=== PATIENT | female | born 1965 | race Caucasian/White ===

== ENCOUNTER 2019-01-06 11:01 | Emergency (ER) | payer BC ==
[2019-01-06] MEDS ORDERED: SODIUM CHLORIDE 0.9% 1,000 ML IV ONE (11:26)
[2019-01-06] MEDS ORDERED: ONDANSETRON 4 MG/2 ML VIAL IVP STA (11:26)
[2019-01-06] MEDS ORDERED: MECLIZINE 12.5 MG TABLET PO STA (11:26)
--- NOTE | 2019-01-06 11:31 | ED Physician Documentation ---
History of Present Illness - Stated complaint Stated Complaint: DIZZINESS/NAUSEA - Chief complaint Chief Complaint: Neuro - History obtained from History obtained from: Patient, Family - History of Present Illness Timing: Today Pain level max: 0 Pain level now: 0 - Additonal information Additional information: patient states she feels the room spinning this morning. + nausea. no vomiting. No head injury. Visiting from [place]. No focal neurological deficits. No chest pain. No shortness of breath. Worse with movement and better with rest. Review of Systems Constitutional: denies: Fever, Chills Respiratory: denies: Cough GI: denies: Abdominal Pain, Vomiting, Diarrhea Skin: denies: Rash Musculoskeletal: denies: Neck pain, Back pain Neurologic: denies: Focal weakness, Numbness, Headache PD PAST MEDICAL HISTORY - Past Medical History Past Medical History: Yes Cardiovascular: High cholesterol Neuro: CVA Endocrine/Autoimmune: HyPOthyroidism Psych: ADD/ADHD Other Past Medical History: HELP syndrome. - Past Surgical History Past Surgical History: Yes Ortho: Knee replacement /[employer]: Hysterectomy, Other - Present Medications Home Medications: Ambulatory Orders Medication Instructions Recorded Confirmed Aspirin Chewable [[facility] [place] 81 mg PO DAILY 01/06/19 01/06/19 Aspirin] Atorvastatin [Lipitor] 0 mg 01/06/19 Clopidogrel [Plavix] 75 mg PO DAILY 01/06/19 01/06/19 Dextroamphetamine/Amphetamine 10 mg PO 01/06/19 [Adderall 10 mg Tablet] Levothyroxine [Synthroid] 75 mcg PO QDAC 01/06/19 01/06/19 Meclizine [Antivert] 12.5 - 25 mg PO Q6H PRN #20 tablet 01/06/19 Ondansetron Odt [Zofran] 4 mg TL Q6H PRN #10 tablet 01/06/19 Venlafaxine [Effexor] 37.5 mg PO BID 01/06/19 01/06/19 lamoTRIgine [LaMICtal] 25 mg PO DAILY 01/06/19 01/06/19 - Allergies Allergies/Adverse Reactions: Allergies Allergy/AdvReac Type Severity Reaction Status Date / Time No Known Drug Allergies Allergy Verified 01/06/19 11:16 - Social History Does the pt smoke?: No Smoking Status: Never smoker Does the pt drink ETOH?: No Does the pt have substance abuse?: No - Immunizations Immunizations are current?: Yes PD ED PE NORMAL - Vitals Vital signs reviewed: Yes - General General: Alert and oriented X 3, No acute distress, Well developed/nourished - HEENT HEENT: PERRL, Moist mucous membranes, Pharynx benign, Other (horizontal nystagmus, fast to the L.) - Neck Neck: Supple, no meningeal sign - Cardiac Cardiac: RRR, Strong equal pulses - Respiratory Respiratory: No respiratory distress, Clear bilaterally - Abdomen Abdomen: Soft, Non tender, Non distended - Back Back: No spinal TTP - Derm Derm: Warm and dry - Extremities Extremities: No edema, No calf tenderness / cord - Neuro Neuro: Alert and oriented X 3, board operator 2-12 intact, No motor deficit, No sensory deficit, Normal speech, Other (Positive Hallpike to the left. Horizontal nystagmus.) Eye Opening: Spontaneous Motor: Obeys Commands Verbal: Oriented GCS Score: 15 - Psych Psych: Normal mood, Normal affect Results - Vitals Vitals: Vital Signs - 24 hr 01/06/19 01/06/19 11:11 12:25 Temperature 36.8 C Heart Rate 63 62 Respiratory 20 14 Rate Blood Pressure 136/87 H 148/99 H O2 Saturation 98 100 Oxygen O2 Source Room air - EKG (time done) 1131 Rate: Rate (enter#) (66) Rhythm: NSR [place]: Normal Intervals: Normal NH QRS: Normal Ischemia: Normal ST segments - Labs Labs: Laboratory Tests 01/06/19 01/06/19 01/06/19 11:41 11:41 12:15 WBC 4.3 L RBC 5.28 Hgb 15.5 Hct 49.4 H MCV 93.6 MCH 29.4 MCHC 31.4 L RDW 13.1 Plt Count 268 MPV 9.1 Neut # (Auto) 3.0 Lymph # (Auto) 0.9 L Brooke # (Auto) 0.2 Eos # (Auto) 0.1 Baso # (Auto) 0.0 Absolute Nucleated RBC 0.00 Nucleated RBC % 0.0 Sodium 141 Potassium 3.8 Chloride 105 Carbon Dioxide 28 Anion Gap 8.0 BUN 18 Creatinine 0.6 Estimated GFR (MDRD) 104 Glucose 102 H Calcium 9.5 Total Bilirubin 0.9 AST 25 ALT 28 Alkaline Phosphatase 60 Total Protein 6.6 L Albumin 3.9 Globulin 2.7 Albumin/Globulin Ratio 1.4 Lipase 28 Urine Color YELLOW Urine Clarity CLEAR Urine pH 7.0 Ur Specific Luana 1.010 Urine Protein NEGATIVE Urine Glucose (UA) NEGATIVE Urine Ketones NEGATIVE Urine Occult Blood NEGATIVE Urine Nitrite NEGATIVE Urine Bilirubin NEGATIVE Urine Urobilinogen 0.2 (NORMAL) Ur Leukocyte Esterase NEGATIVE Ur Microscopic Review NOT INDICATED Urine Culture Comments NOT INDICATED - Rads (name of study) head ct Radiology: Prelim report reviewed, EMP read contemporaneously, See rad report (Old stroke. No acute abnormality) PD MEDICAL DECISION MAKING - ED course Complexity details: reviewed results, re-evaluated patient, considered differential, d/w patient, d/w family ED course: Patient with what appears to be vertigo. Likely BPPV. Possible vestibular neuritis, though less likely. No evidence of stroke. No acute laboratory abnormalities. Feels better after meclizine and Zofran. Ambulating without difficulty. Patient counseled regarding signs and symptoms for which I believe and urgent re-evaluation would be necessary. Patient with good understanding of and agreement to plan and is comfortable going home at this time This document was made in part using voice recognition software. While efforts are made to proofread this document, sound alike and grammatical errors may occur. Departure - Departure Disposition: 01 Home, Self Care Clinical Impression: Vertigo Condition: Good Instructions: ED Vertigo Unspecified Follow-Up: your,doctor in 1 week [Other] Prescriptions: Meclizine [Antivert] 12.5 - 25 mg PO Q6H PRN #20 tablet PRN Reason: Vertigo Ondansetron Odt [Zofran] 4 mg TL Q6H PRN #10 tablet PRN Reason: Nausea / Vomiting Comments: Follow-up with your doctor for further care. Return if you worsen. This should improve over the next 24 hours. You can try the half somersault maneuver at home as well. There is a YouTube video on this. Your left ear appears to be the ear that is effected. Discharge Date/Time: 01/06/19 13:04
[2019-01-06 11:53] LABS: BASOPHILS % (AUTO) 0.7 %; EOSINOPHILS # (AUTO) 0.1 10^3/uL (0.0-0.7); EOSINOPHILS % (AUTO) 2.5 %; HGB - HEMOGLOBIN 15.5 g/dL (12.0-16.0); LYMPHOCYTES # (AUTO) 0.9 10^3/uL (1.5-3.5); LYMPHOCYTES % (AUTO) 20.8 %; MEAN CORPUSCULAR HEMOGLOBIN 29.4 pg (27.0-31.0); MEAN CORPUSCULAR HGB CONC 31.4 g/dL (32.0-36.0); MEAN CORPUSCULAR VOLUME 93.6 fL (81.0-99.0); MEAN PLATELET VOLUME 9.1 fL (7.9-10.8); MONOCYTES # (AUTO) 0.2 10^3/uL (0.0-1.0); MONOCYTES % (AUTO) 5.5 %; NEUTROPHILS % (AUTO) 69.8 %; PLT - PLATELET COUNT 268 10^3/uL (130-450); RED BLOOD COUNT 5.28 10^6/uL (4.20-5.40); RED CELL DISTRIBUTION WIDTH 13.1 % (12.0-15.0); WHITE BLOOD COUNT 4.3 x10^3/uL (4.8-10.8)
[2019-01-06 12:06] LABS: ALBUMIN 3.9 g/dL (3.2-5.5); ALBUMIN/GLOBULIN RATIO 1.4 (1.0-2.2); BILIRUBIN,TOTAL 0.9 mg/dL (0.2-1.0); CALCIUM 9.5 mg/dL (8.5-10.3); CREATININE 0.6 mg/dL (0.4-1.0); TOTAL PROTEIN 6.6 g/dL (6.7-8.2)
[2019-01-06 12:25] VITALS: BP 148/99
[2019-01-06 12:34] LABS: BILIRUBIN,URINE NEGATIVE (NEGATIVE); GLUCOSE, URINE (UA) NEGATIVE (NEGATIVE); KETONES,URINE (UA) NEGATIVE (NEGATIVE); LEUKOCYTE ESTERASE, URINE NEGATIVE (NEGATIVE); NITRITE,URINE NEGATIVE (NEGATIVE); OCCULT BLOOD,URINE NEGATIVE (NEGATIVE); PROTEIN,URINE NEGATIVE (NEGATIVE); UROBILINOGEN,URINE 0.2 (NORMAL) E.U./dL (NORMAL)
[2019-01-06 12:35] LABS: CLARITY,URINE CLEAR (CLEAR)
--- NOTE | 2019-01-06 12:38 | CT Report ---
Reason: vertigo, off balance Procedure Date: 01/06/2019 Accession Number: [id number] / [id number] Procedure: CT - HEAD WO CPT Code: Final Report FULL RESULT: EXAM: CT HEAD EXAM DATE: 01/06/2019 12:15 PM. CLINICAL HISTORY: Vertigo. COMPARISON: None. TECHNIQUE: Multiaxial CT images were obtained from the foramen magnum to the vertex. Reformats: Sagittal and coronal. IV contrast: None. In accordance with CT protocol optimization, one or more of the following dose reduction techniques were utilized for this exam: automated exposure control, adjustment of mA and/or KV based on patient size, or use of iterative reconstructive technique. FINDINGS: Parenchyma: Small old infarct left frontoparietal lobe region (image 23/3). Remainder scott-white differentiation is preserved. No intercranial hemorrhage, midline shift, or mass-effect. Extraaxial Spaces: Normal for age. No subdural or epidural collections identified. Ventricles: Normal in size and position. Sinuses and Orbits: Imaged paranasal sinuses, orbits, and mastoids show no significant abnormality. Bones: No evidence of fracture or calvarial defect. Other: None. IMPRESSION: 1. No acute intracranial abnormality. 2. Small old left frontoparietal lobe infarct. RADIA
== END 2019-01-06 13:04 | disposition home or self-care (01) ==
LOC: ED 11:01
DX: R42 Dizziness and giddiness (principal)
CPT/HCPCS: 36415; 70450; 80053; 81003; 83690; 85025; 93005; 96360; 99283; 99284; A9270; 81001; 87086